=== PATIENT | female | born 1990 | race Caucasian/White ===

== ENCOUNTER 2017-04-29 17:10 | Emergency (ER) | payer OTHER ==
[2017-04-29 17:32] VITALS: BP 107/57
--- NOTE | 2017-05-02 19:27 | UC ---
Tammy Hearn Alfonso, scribed for Angelika Mariano DO on 04/29/17 at 1901 . General HPI - HPI Summary HPI Summary: This patient is a 26 year old F presenting to [facility] with a chief complaint of nonproductive cough since 10 days ago, worse since a few days ago. The patient rates the pain 1/10 in severity. Symptoms aggravated by nothing. Symptoms alleviated by nothing. Patient reports sore throat, sinus pressure, and ear ache. Patient denies fever, chills, abdominal pain, N/V, CP, SOB, and dyspnea. She has seasonal allergies. - History of Current Complaint Chief Complaint: UCRespiratory Stated Complaint: CONGESTION Time Seen by Provider: 04/29/17 18:52 Hx Obtained From: Patient Hx Last Menstrual Period: 04/11/17 Onset/Duration: Sudden Onset, Lasting Days, Still Present Timing: Constant Onset Severity: Moderate Current Severity: Mild Pain Intensity: 1 - /10 Associated Signs & Symptoms: Positive: Other - sore throat, sinus pressure, and ear ache. Patient denies fever, chills, abdominal pain, N/V, CP, SOB, and dyspnea. - Allergy/Home Medications Allergies/Adverse Reactions: Allergies Allergy/AdvReac Type Severity Reaction Status Date / Time Cefdinir [From Omnicef] Allergy Hives Verified 04/29/17 17:34 Sodium Benzoate Allergy Hives Verified 04/29/17 17:34 [From Omnicef] Home Medications: Home Medications Cholecalciferol [Vitamin D] 1,000 unit PO DAILY 04/29/17 [History Confirmed ] Hensley-3 Fatty Acids [Fish Oil 1200 mg] 1 cap PO DAILY 04/29/17 [History Confirmed 04/29/17] PMH/Surg Hx/FS Hx/Imm Hx Previously Healthy: Yes - Surgical History Surgical History: None - Family History Known Family History: Positive: Hypertension, Diabetes - Social History Alcohol Use: Occasionally Substance Use Type: None Smoking Status (MU): Never Smoked Tobacco Review of Systems ENT: Sore Throat, Ear Ache, Other - Sinus pressure Respiratory: Cough All Other Systems Reviewed And Are Negative: Yes Physical Exam Triage Information Reviewed: Yes Appearance: Well-Appearing, No Pain Distress, Well-Nourished Vital Signs: Initial Vital Signs Temp 98.6 F 10/19/17 17:26 Pulse 75 04/29/17 17:26 Resp 18 04/29/17 17:26 BP 107/57 04/29/17 17:26 Pulse Ox 100 04/29/17 17:26 Vital Signs Reviewed: Yes Eyes: Positive: Conjunctiva Clear. Negative: Discharge ENT: Positive: Hearing grossly normal, Pharyngeal erythema, TMs normal, Other: - Infraorbital congestion. Nasal congestion. Nasal drainage. Exquisite sinus tenderness to percussion. Negative: Tonsillar swelling, Tonsillar exudate, Trismus, Muffled/hoarse voice Neck: Positive: Supple, Nontender Respiratory: Positive: Chest non-tender, Lungs clear, Normal breath sounds, No respiratory distress Cardiovascular: Positive: RRR, No Murmur Abdomen Description: Positive: Nontender, Soft Bowel Sounds: Positive: Present Musculoskeletal Exam: Normal Musculoskeletal: Positive: Strength Intact Neurological Exam: Normal Neurological: Positive: Alert Psychological Exam: Normal Psychological: Positive: Age Appropriate Behavior Skin Exam: Normal Skin: Positive: Other - Warm, Dry, Normal color Course/Dx - Course Course Of Treatment: This patient is a 26 year old F presenting to [facility] with a chief complaint of nonproductive cough since 10 days ago, worse since a few days ago. The patient rates the pain 1/10 in severity. Symptoms aggravated by nothing. Symptoms alleviated by nothing. Patient reports sore throat, sinus pressure, and ear ache. Patient denies fever, chills, abdominal pain, N/V, CP, SOB, and dyspnea. She has seasonal allergies. Medications reviewed this visit. Patient will be discharged with prescription for Augmentin and follow up from PCP. The patient is agreeable with this plan. - Differential Dx - Multi-Symptom Provider Diagnoses: Sinusitis Discharge - Discharge Plan Condition: Stable Disposition: HOME Prescriptions: Amoxicillin/Clavulanate TAB* [Augmentin TAB 875*] 875 mg PO BID #20 tab Patient Education Materials: Sinusitis (ED) Referrals: [facility] [Outside] Additional Instructions: TRY USING THE NETTI POT IN THE MORNINGS DISCUSSED. YOU MUST ALWAYS USE CLEAN WATER. REMEMBER, POSTURE IS AN IMPORTANT FACTOR IN SINUS DRAINAGE. MOVE YOUR NECK, BREATHE. ANTIBIOTICS ARE NOT CURRENTLY INDICATED FOR YOUR CONDITION. hOWEVER, IF YOUR SYMPTOMS WORSEN OR PERSIST FOR OVER THE NEXT 3-5 DAYS, YOU CAN TAKE THE FOLLOWING MEDICATION: AUGMENTIN: Augmentin is a mixture of amoxicillin and clavulanate. Amoxicillin is a member of the penicillin family. It covers the germs likely to cause ear, bronchial, and urinary infections better than plain penicillin. The addition of clavulanate allows it to cover staph infections of the skin, as well as resistant cases of ear and sinus infections. Your physician has chosen Augmentin for you because of the special nature of your situation. Augmentin is best taken with meals. Nausea after taking the medication is rare, but can occur. Diarrhea can occur, particularly in small children. Vaginal yeast infections, and oral thrush in infants are also common. Contact your physician if these problems occur. Allergy to penicillins is common. If you have had an allergic reaction to any drug of the penicillin family, you should never take any other penicillin. Notify your doctor at once if you develop hives, shortness of breath, swelling, or faintness. ANYTIME YOU TAKE AN ANTIBIOTIC, IT IS IMPORTANT TO REPLENISH THE BODY'S SUPPLY OF "GOOD BACTERIA." YOU CAN GET GOOD BACTERIA FROM HIGH QUALITY CULTURED FOODS SUCH LOCAL YOGURT, SOUR KRAUT, BOLIVAR LIAM, NATURALLY FERMENTED PICKLES AND PROBIOTIC DRINKS. YOU CAN ALSO GET GOOD BACTERIA FROM A PROBIOTIC SUPPLEMENT. The documentation as recorded by the Tammy weber Alfonso accurately reflects the service I personally performed and the decisions made by me, Angelika Mariano DO.
== END 2017-04-29 19:24 | disposition home or self-care (01) ==
LOC: UCEAST 17:10
DX: J32.9 Chronic sinusitis, unspecified (principal)
CPT/HCPCS: 99202; G0463